=== PATIENT | female | born 1950 | race Caucasian/White ===

== ENCOUNTER 2020-09-21 08:07 | Day surgery (SDC) | payer MEDICARE ==
[~2020-09-21] VITALS: Ht 165.1 cm; Wt 61.7 kg
[~2020-09-21 08:07] MED LIST: BACLOFEN10 MG PO; BACTRIM DS1 TAB PO; BUPROPION HCL150 M2 PO; CARAFATE1 GM/10 M1 PO; CHANTIX STARTIN0.5 & PO; CITRACAL + D3 MAXIMU PO; CLONAZEPAM1 MG PO; CRANBERRY125 MG PO; DEPO-MEDROL80 MG/ML IM; ESTRADIOL0.5 MG PO; FLUARIX QUADRIV1 INJ IM; HYDROCODONE BIT1 TA7 PO; LEVOTHYROXIN100 MCG PO; LORTAB 7.57.5 MG PO; MOVANTIK25 MG PO; NAPROSYN500 MG PO; PAIN MEDICATION; PROBIOTIC1 TAB PO; XANAX0.25 MG PO; ZYBAN150 MG PO
[2020-09-21] MEDS ORDERED: HAIR/SKIN/NAILS1 CAP PO (08:31)
[2020-09-21 11:50] VITALS: BP 137/67
== END 2020-09-21 12:15 | disposition home or self-care (01) ==
LOC: ORM 08:07
PROVIDERS: ATTEND Surgery
PROC: 0YU50JZ Supplement Right Inguinal Region with Synthetic Substitute, Open Approach (ICD-10-PCS; principal; 2020-09-21)
DX: K40.90 Unilateral inguinal hernia, without obstruction or gangrene, not specified as recurrent (principal); E03.9 Hypothyroidism, unspecified; F17.210 Nicotine dependence, cigarettes, uncomplicated
CPT/HCPCS: C9290; J0131; J1100; J2710

== ENCOUNTER 2022-04-06 01:30 | Emergency (ER) | payer MEDICARE ==
[2022-04-06] VITALS (10 sets, daily range): BP systolic 101–127; BP diastolic 60–77
[~2022-04-06] VITALS: Ht 165.1 cm; Wt 54.4 kg
[~2022-04-06 01:30] MED LIST changes: +HAIR/SKIN/NAILS1 CAP PO
[2022-04-06 02:48] LABS: BASO% 0.8 % (0-3); EOS% 1.4 % (0-8); HEMATOCRIT 35.5 % (37.0-47.0); IMMATURE GRANULOCYTES 0.3 % (0.0-5.0); LYMPH% 18.4 % (15-41); MEAN CELL VOLUME 101.7 fL CALC (80.0-100.0); MEAN CORPUSCULAR HGB 34.1 pG CALC (26.0-32.0); MEAN CORPUSCULAR HGB CONC 33.5 g/dL CAL (32.0-36.0); MONO% 5.9 % (2-13); NEUT# 6.74 thou/uL (2.00-7.15); NEUT% 73.2 % (42-76); RED BLOOD COUNT 3.49 mill/uL (4.20-5.60); RED CELL DISTRI WIDTH 12.5 % (11.5-15.5)
[2022-04-06 02:51] LABS: URINE BILIRUBIN - DIPSTICK NEGATIVE (NEGATIVE); URINE BLOOD DIPSTICK NEGATIVE (NEGATIVE); URINE COLOR YELLOW; URINE GLUCOSE - DIPSTICK NEGATIVE (NEGATIVE); URINE KETONE NEGATIVE (NEGATIVE); URINE LEUK ESTERASE NEGATIVE (NEGATIVE); URINE PROTEIN - DIPSTICK NEGATIVE (NEG-TRACE); URINE SPECIFIC GRAVITY 1.015; URINE UROBILINOGEN - DIPSTICK 0.2 E.U./dL (0.2)
[2022-04-06 02:51] LABS: HEMOGLOBIN 11.9 g/dl (12.0-16.0)
[2022-04-06 03:10] LABS: URINE NITRITE - DIPSTICK NEGATIVE (Negative)
[2022-04-06 03:12] LABS: ALBUMIN 4.5 g/dL (3.2-5.0); ALKALINE PHOSPHATASE 41 u/l (38-126); BILIRUBIN, TOTAL 0.5 mg/dL (0.02-1.3); BUN 19 mg/dL (8-23); BUN/CREATININE RATIO 20 (12-20 (CALC)); CARBON DIOXIDE 26 mmol/l (22-30); CHLORIDE 101 mmol/l (95-108); CREATININE 0.9 mg/dL (0.5-1.0); GFR FOR AFR.AMER. > 60 ML/MIN (>=60 (CALC)); GFR OTHER RACES > 60 ML/MIN (>=60 (CALC)); TOTAL PROTEIN 7.2 g/dL (6.3-8.2)
[2022-04-06 03:15] LABS: ANION GAP 9 (6-22 (CALC)); POTASSIUM 3.9 mmol/l (3.5-5.1); SGOT/AST 49 u/l (9-36); SODIUM 132 mmol/l (137-146)
[2022-04-06] MEDS ORDERED: ONDANSETRON4 MG PO ×2 (03:38→04:04)
[2022-04-06] MEDS ORDERED: ZITHROMAX250 MG PO ×2 (03:38→04:04)
== END 2022-04-06 04:12 | disposition home or self-care (01) ==
LOC: ED 01:30
PROVIDERS: Emergency Medicine
DX: J40 Bronchitis, not specified as acute or chronic (principal); E03.9 Hypothyroidism, unspecified; Z85.3 Personal history of malignant neoplasm of breast; F17.210 Nicotine dependence, cigarettes, uncomplicated; Z20.822 Contact with and (suspected) exposure to COVID-19